=== PATIENT | male | born 1980 | race Caucasian/White ===

== ENCOUNTER 2018-03-31 18:30 | Emergency (ER) | payer OTHER ==
[2018-03-31] MEDS ORDERED: LORazepam 1 MG TAB PO ONE (19:35)
--- NOTE | 2018-03-31 19:38 | EDPHY ---
H & P Smoking Status: Current every day smoker Time Seen by Provider: 03/31/18 19:14 HPI/ROS: Chief complaint. Blisters on feet, anxiety, suicide ideation HPI. 37-year-old male presents emergency department with multiple complaints. He has tried to harm self before. He has a plan the whole cut his wrists. He has been hiking in wet socks and shoes and has blisters on both feet. He has anxiety over upcoming court date. No chest pain, shortness of breath, abdominal pain. Denies drugs alcohol. ROS Constitutional. Suicide ideation Eyes. no problems with vision ENT. no sore throat, no nasal drainage Cardiovascular. no chest pain Respiratory. no shortness of breath, no cough Abdominal. no abdominal pain, no nausea/vomiting, no diarrhea . no problems urinating MS. no calf pain/swelling, no neck/back pain, no joint pain Skin. Blisters on both feet Lymph. no swollen glands Neuro. Anxiety (Marco Santos) Past Medical/Surgical History: Anxiety, PTSD (aMrco Santos) Social History: Single, daily smoker, no alcohol (Marco Santos) Physical Exam: General Appearance: Alert well-developed male mild distress vital signs are stable Eyes: Pupils equal and round no pallor or injection. ENT, Mouth: Mucous membranes are moist. Respiratory: There are no retractions, lungs are clear to auscultation. Cardiovascular: Regular rate and rhythm. Gastrointestinal: Abdomen is soft and nontender, no masses, bowel sounds normal. Neurological: Awake and alert, sensory and motor exams grossly normal. Skin: Large posterior left heel as well as blisters between toes both feet. None of them are infected. Skin is very humid. Musculoskeletal: Neck is supple nontender. Extremities symmetrical, full range of motion. Psychiatric: Patient is oriented X 3, there is no agitation. (Marco Santos S) Constitutional: Initial Vital Signs Temperature (C) 36.8 C 03/31/18 18:36 Heart Rate 85 03/31/18 18:36 Respiratory Rate 16 03/31/18 18:36 Blood Pressure 125/83 H 03/31/18 18:36 O2 Sat (%) 96 03/31/18 18:36 O2 Delivery Mode Room Air Allergies/Adverse Reactions: No Known Allergies Allergy (Unverified 03/31/18 18:39) Home Medications: Medication Instructions Recorded Gabapentin 03/31/18 Medical Decision Making Procedures: Ativan orally Mental health evaluation (Marco Santos) ED Course/Re-evaluation: 1201: Patient has been evaluated by mental health. Plan for M1 hold. Is suicidal. Has extensive family history with people that committed suicide patient will need inpatient psychiatric hospitalization. 0321AM: Patient been accepted to [facility] by Dr. James. EMTALA Filled out Appropriate transfer will be set up. (Pravin Martin) - Data Points Laboratory Results: Laboratory Results 03/31/18 20:04 03/31/18 20:04 03/31/18 03/31/18 03/31/18 20:04 20:04 19:53 WBC 12.04 10^3/uL H 10^3/uL (3.80-9.50) RBC 4.94 10^6/uL 10^6/uL (4.40-6.38) Hgb 14.7 g/dL g/dL (13.7-17.5) Hct 43.2 % % (40.0-51.0) MCV 87.4 fL fL (81.5-99.8) MCH 29.8 pg pg (27.9-34.1) MCHC 34.0 g/dL g/dL (32.4-36.7) RDW 13.2 % % (11.5-15.2) Plt Count 345 10^3/uL 10^3/uL (150-400) MPV 9.4 fL fL (8.7-11.7) Neut % (Auto) 69.7 % % (39.3-74.2) Lymph % (Auto) 24.0 % % (15.0-45.0) [place] % (Auto) 4.5 % % (4.5-13.0) Eos % (Auto) 1.2 % % (0.6-7.6) Baso % (Auto) 0.2 % L % (0.3-1.7) Nucleat RBC Rel Count 0.0 % % (0.0-0.2) Absolute Neuts (auto) 8.39 10^3/uL H 10^3/uL (1.70-6.50) Absolute Lymphs (auto) 2.89 10^3/uL 10^3/uL (1.00-3.00) Absolute Monos (auto) 0.54 10^3/uL 10^3/uL (0.30-0.80) Absolute Eos (auto) 0.14 10^3/uL 10^3/uL (0.03-0.40) Absolute Basos (auto) 0.03 10^3/uL 10^3/uL (0.02-0.10) Absolute Nucleated RBC 0.00 10^3/uL 10^3/uL (0-0.01) Immature Gran % 0.4 % % (0.0-1.1) Immature Gran # 0.05 10^3/uL 10^3/uL (0.00-0.10) Sodium 142 mEq/L mEq/L (135-145) Potassium 3.8 mEq/L mEq/L (3.3-5.0) Chloride 102 mEq/L mEq/L (97-110) Carbon Dioxide 26 mEq/l mEq/l (22-31) Anion Gap 14 mEq/L mEq/L (8-16) BUN 16 mg/dL mg/dL (7-23) Creatinine 0.9 mg/dL mg/dL (0.7-1.3) Estimated GFR > 60 Glucose 123 mg/dL H mg/dL (70-100) Calcium 9.6 mg/dL mg/dL (8.5-10.4) Urine Opiates Screen NEGATIVE (NEGATIVE) Urine Barbiturates NEGATIVE (NEGATIVE) Ur Phencyclidine Scrn NEGATIVE (NEGATIVE) Ur Amphetamine Screen NEGATIVE (NEGATIVE) U Benzodiazepines Scrn NEGATIVE (NEGATIVE) Urine Cocaine Screen NEGATIVE (NEGATIVE) U Marijuana (THC) Screen NON-NEGATIVE H (NEGATIVE) Ethyl Alcohol < 10 mg/dL mg/dL (0-10) Medications Given: Discontinued Medications Lorazepam (Ativan) 1 mg PO EDNOW ONE Stop: 03/31/18 19:36 Last Admin: 03/31/18 19:57 Dose: 1 mg Departure - Departure Disposition: Other Psych, Not [facility] Clinical Impression: Suicidal ideation Condition: Fair Instructions: Suicide Prevention (ED) Referrals: NONE *PRIMARY CARE P,. [Primary Care Provider] - As per Instructions
[2018-03-31 20:34] LABS: PLATELET COUNT 345 10^3/uL (150-400)
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
--- NOTE | 2018-03-31 23:37 | ASMTTCLDSP ---
TLC Discharge Disposition Disposition: Answers: Transfer Disposition Notes: Notes: In consultation with [facility] ED physician, Marco Santos MD and on-call psychiatrist, Mora Bojorquez MD, both concurred that pt appears to meet 27-65 criteria requiring psychiatric hospitalization as the patient appears to be an imminent risk of harm to self due to a mental illness condition. Date Signed: 03/31/2018 11:34 PM Electronically Signed By:Rashmi Rubio
[2018-04-01 03:41] VITALS: BP 128/92
== END 2018-04-01 04:30 ==
PROC: GZ11ZZZ Psychological Tests, Personality and Behavioral (ICD-10-PCS; principal; 2018-03-31)
DX: R45.851 Suicidal ideations (principal); F17.200 Nicotine dependence, unspecified, uncomplicated
CPT/HCPCS: 80305; G0480